=== PATIENT | male | born 1950 | race Caucasian/White ===

== ENCOUNTER 2016-12-25 15:14 | Outpatient (CLI) | payer BC, OTHER ==
[2016-12-25 18:33] LABS: BASOPHILS % (AUTO) 0.8 %; EOSINOPHILS # (AUTO) 0.1 10^3/uL (0.0-0.7); EOSINOPHILS % (AUTO) 1.5 %; HCT - HEMATOCRIT 42.1 % (42.0-52.0); LYMPHOCYTES # (AUTO) 1.5 10^3/uL (1.5-3.5); LYMPHOCYTES % (AUTO) 28.9 %; MEAN CORPUSCULAR HGB CONC 33.3 g/dL (32.0-36.0); MEAN CORPUSCULAR VOLUME 90.1 fL (80.0-94.0); MEAN PLATELET VOLUME 10.1 fL (7.4-11.4); MONOCYTES # (AUTO) 0.4 10^3/uL (0.0-1.0); MONOCYTES % (AUTO) 7.4 %; NEUTROPHILS # (AUTO) 3.2 10^3/uL (1.5-6.6); NEUTROPHILS % (AUTO) 61.4 %; NUCLEATED RED BLOOD CELLS AUTO 0.1 /100WBC; RED BLOOD COUNT 4.68 10^6/uL (4.70-6.10); RED CELL DISTRIBUTION WIDTH 13.6 % (12.0-15.0); UNCORRECTED WHITE BLOOD COUNT 5.2 x10^3/uL; WHITE BLOOD COUNT 5.2 x10^3/uL (4.8-10.8)
[2016-12-25 18:43] LABS: BILIRUBIN,URINE NEGATIVE (NEGATIVE); PH,URINE 5.5 PH (5.0-7.5)
[2016-12-25 18:58] LABS: ALBUMIN/GLOBULIN RATIO 1.5 (1.0-2.2); BILIRUBIN,TOTAL 0.8 mg/dL (0.2-1.0); BUN - BLOOD UREA NITROGEN 16 mg/dL (6-20); CARBON DIOXIDE - CO2 26 mmol/L (21-32); CHLORIDE 106 mmol/L (101-111); CREATININE 0.8 mg/dL (0.6-1.2); GFR - MDRD 97 (>89); GLUCOSE 104 mg/dL (70-100); POTASSIUM 3.7 mmol/L (3.5-5.0); SODIUM 141 mmol/L (135-145); TOTAL PROTEIN 7.2 g/dL (6.7-8.2)
[2016-12-25 19:04] LABS: UR CULTURE IF IND NOT INDICATED; WBC,URINE 0-3 /HPF (0-3)
== END 2016-12-25 15:15 | disposition home or self-care (01) ==
LOC: LAB.F 15:14
PROVIDERS: ATTEND Nurse Practitioner Family
DX: R10.2 Pelvic and perineal pain (principal); I48.0 Paroxysmal atrial fibrillation; Z12.5 Encounter for screening for malignant neoplasm of prostate
CPT/HCPCS: 36415; 80053; 81001; 84153; 84443; 85025; 87086

== ENCOUNTER 2017-01-07 11:33 | Outpatient (CLI) | payer BC, OTHER ==
--- NOTE | 2017-01-07 18:44 | XRAY Report ---
LEFT HIP AND PELVIS: 01/07/2017 CLINICAL INDICATION: Left hip pain. Frontal view of the hips and pelvis, and frog-leg lateral views of the left hip were obtained. Bilat eral hip replacements are noted in place. There is no evidence of fracture or hardware complication. No radiopaque foreign body is seen in the soft tissues. IMPRESSION: BILATERAL HIP REPLACEMENTS, WITHOUT EVIDENCE OF FRACTURE OR HARDWARE COMPLICATION. JOB #: [id number] EXT JOB #:[id number]
--- NOTE | 2017-01-07 18:49 | XRAY Report ---
FRONTAL CHEST AND LEFT RIBS: 01/07/2017 CLINICAL INDICATION: Left rib pain. Frontal view of the chest and oblique views of the left lower ribs were obtained, with markers at the site of maximal tenderness. The cardiac silhouette is within normal limits. Mild basilar atelectas is is present. No effusion or pneumothorax is seen. No displaced rib fracture is appreciated. IMPRESSION: MINIMAL BASILAR ATELECTASIS. NO EVIDENCE OF DISPLACED RIB FRACTURE. NO PNEUMOTHORAX. JOB #: [id number] EXT JOB #:[id number]
== END 2017-01-07 11:34 | disposition home or self-care (01) ==
LOC: DI.S 11:33
PROVIDERS: ATTEND Nurse Practitioner Family
DX: R07.81 Pleurodynia (principal); Z98.1 Arthrodesis status

== ENCOUNTER 2018-10-25 23:05 | Emergency (ER) | payer MEDICARE, OTHER ==
--- NOTE | 2018-10-26 00:50 | ED Physician Documentation ---
History of Present Illness - Stated complaint Stated Complaint: SWOLLEN CALF - Chief complaint Chief Complaint: Ext Problem - History obtained from History obtained from: Patient - History of Present Illness Timing: How many days ago (3) Pain level now: 6 Improved by: rest Worsened by: movement, palpation - Additonal information Additional information: c/o 3 days atraumatic gradual onset swelling LLE, rapidly worse past few hours. Review of Systems Constitutional: reports: Reviewed and negative Cardiac: reports: Reviewed and negative Respiratory: reports: Reviewed and negative Musculoskeletal: reports: Extremity pain, Extremity swelling, Pain with weight bearing Neurologic: denies: Focal weakness, Numbness PD PAST MEDICAL HISTORY - Past Medical History Past Medical History: Yes Cardiovascular: Atrial fibrillation Respiratory: None Neuro: None Endocrine/Autoimmune: None GI: None : None HEENT: None Psych: Anxiety, Panic attacks Musculoskeletal: Osteoarthritis Derm: None - Past Surgical History Past Surgical History: Yes General: Colonoscopy Ortho: Hip replacement - Present Medications Home Medications: Ambulatory Orders Medication Instructions Recorded Confirmed Metoprolol Succinate 37.5 mg PO DAILY PM 10/25/18 10/25/18 Aspirin [Adult Aspirin Regimen] 81 mg PO DAILY PM 10/26/18 10/26/18 Oxycodone HCl/Acetaminophen 1 - 2 each PO Q6H PRN #20 tablet 10/26/18 [Percocet 5-325 mg Tablet] Tamsulosin [Flomax] cap PO DAILY PM 10/26/18 - Allergies Allergies/Adverse Reactions: Allergies Allergy/AdvReac Type Severity Reaction Status Date / Time No Known Drug Allergies Allergy Unverified 04/01/13 08:26 - Social History Does the pt smoke?: No Smoking Status: Never smoker Does the pt drink ETOH?: Yes ETOH Use: Wine Does the pt have substance abuse?: No - Immunizations Immunizations are current?: No - POLST Patient has POLST: No PD ED PE NORMAL - Vitals Vital signs reviewed: Yes - General General: Alert and oriented X 3, No acute distress, Well developed/nourished - Cardiac Cardiac: RRR, No murmur - Respiratory Respiratory: No respiratory distress, Clear bilaterally - Neuro Neuro: No motor deficit, No sensory deficit PD ED PE EXPANDED - Extremities ANGEL LE visual: 1 - swelling (Circumferential edema without erythema or increased warmth to touch (compared to RLE). Moderate tenderness along posterior calf. Strong left DP and PT pulses with brisk capillary refill in foot and toes, LTS intact) Results - Vitals Vitals: Oxygen O2 Source Room air - Labs Labs: Laboratory Tests 10/26/18 10/26/18 10/26/18 01:10 01:10 01:10 WBC 5.5 RBC 4.45 L Hgb 13.3 L Hct 40.4 L MCV 90.6 MCH 30.0 MCHC 33.0 RDW 13.8 Plt Count 196 MPV 9.1 Neut # (Auto) 3.6 Lymph # (Auto) 1.2 L [place] # (Auto) 0.5 Eos # (Auto) 0.1 Baso # (Auto) 0.1 Absolute Nucleated RBC 0.00 Nucleated RBC % 0.0 PT 11.1 INR 1.0 APTT 26.5 Sodium 140 Potassium 4.4 Chloride 105 Carbon Dioxide 25 Anion Gap 10.0 BUN 24 H Creatinine 0.8 Estimated GFR (MDRD) 97 Glucose 114 H Calcium 9.1 - Rads (name of study) LLE doppler US Radiology: Prelim report reviewed, See rad report PD MEDICAL DECISION MAKING - ED course Complexity details: reviewed results, re-evaluated patient, considered differential, d/w patient Departure - Departure Disposition: 01 Home, Self Care Clinical Impression: Ruptured Bakers cyst Condition: Good Instructions: ED Hematoma, ED Leg Swelling Unilateral, ED Compartment Syndrome At Risk For Prescriptions: Oxycodone HCl/Acetaminophen [Percocet 5-325 mg Tablet] 1 - 2 each PO Q6H PRN #20 tablet PRN Reason: pain Discharge Date/Time: 10/26/18 04:25
[2018-10-26] MEDS ORDERED: oxyCODONE 5 MG TABLET PO STA ×2 (01:04→04:06)
[2018-10-26 01:18] LABS: BASOPHILS # (AUTO) 0.1 10^3/uL (0.0-0.1); BASOPHILS % (AUTO) 1.2 %; EOSINOPHILS # (AUTO) 0.1 10^3/uL (0.0-0.7); EOSINOPHILS % (AUTO) 1.4 %; HGB - HEMOGLOBIN 13.3 g/dL (14.0-18.0); LYMPHOCYTES # (AUTO) 1.2 10^3/uL (1.5-3.5); LYMPHOCYTES % (AUTO) 21.6 %; MEAN CORPUSCULAR VOLUME 90.6 fL (80.0-94.0); MEAN PLATELET VOLUME 9.1 fL (7.4-11.4); MONOCYTES # (AUTO) 0.5 10^3/uL (0.0-1.0); MONOCYTES % (AUTO) 9.9 %; NEUTROPHILS # (AUTO) 3.6 10^3/uL (1.5-6.6); NEUTROPHILS % (AUTO) 65.9 %; PLT - PLATELET COUNT 196 10^3/uL (130-450); RED BLOOD COUNT 4.45 10^6/uL (4.70-6.10); RED CELL DISTRIBUTION WIDTH 13.8 % (12.0-15.0); WHITE BLOOD COUNT 5.5 x10^3/uL (4.8-10.8)
[2018-10-26 01:23] LABS: PT - PROTHROMBIN TIME 11.1 secs (9.9-12.6)
[2018-10-26 01:25] LABS: CALCIUM 9.1 mg/dL (8.5-10.3); CREATININE 0.8 mg/dL (0.6-1.2)
[2018-10-26 01:30] LABS: PARTIAL THROMBOPLASTIN TIME 26.5 secs (24.9-33.3)
--- NOTE | 2018-10-26 02:45 | Ultrasound Report ---
Reason: LLE pain, swelling Procedure Date: 10/26/2018 Accession Number: [id number] / [id number] Procedure: US - Duplex Ext Veins Left CPT Code: FULL RESULT: EXAM: LEFT LOWER EXTREMITY VENOUS ULTRASOUND EXAM DATE: 10/26/2018 02:35 AM. CLINICAL HISTORY: LLE pain, swelling. COMPARISON: None. TECHNIQUE: Real-time sonographic vascular imaging was performed by the instructor trainer canine service through the lower extremity utilizing both color-flow and Doppler spectral analysis. Multiple dairy supplies sales representative static images were saved for review. FINDINGS: Common Femoral Vein (CFV): Normal. CFV-GSV Junction: Normal. Profunda Femoral Vein (PFV): Normal. Femoral Vein (FV) Prox: Normal. Femoral Vein (FV) Mid: Normal. Femoral Vein (FV) Dist: Normal. Popliteal Vein: Normal. Posterior Tibial Veins: Normal. Peroneal Veins: Normal. Contralateral Side CFV: Normal. Other: Small popliteal fossa fluid collection measuring 2.2 x 1.1 x 1.5 cm. Masslike area in the posterior upper calf measuring 14.3 x 4.2 x 6.8 cm. IMPRESSION: 1. No evidence for deep venous thrombosis. 2. Small popliteal fossa fluid collection measuring 2.2 x 1.1 x 1.5 cm. 3. Masslike area in the left posterior upper calf possibly representing hematoma, 14.3 x 4.2 x 6.8 cm. RADIA
[2018-10-26 04:43] VITALS: BP 139/88
== END 2018-10-26 04:25 | disposition home or self-care (01) ==
LOC: ED 23:05
DX: M66.0 Rupture of popliteal cyst (principal); Z79.82 Long term (current) use of aspirin
CPT/HCPCS: 36415; 80048; 85025; 85610; 85730; 93971; 99283; A9270

== ENCOUNTER 2023-06-24 09:57 | Outpatient (CLI) | payer MEDICARE, OTHER | END 2023-06-24 09:58 | disposition home or self-care (01) | LOC: LAB.S 09:57 | PROVIDERS: ATTEND Registered Nurse | DX: U07.1 COVID-19 (principal) | CPT/HCPCS: 36415; 80048 ==